=== PATIENT | female | born 1965 | race American Indian/Alaskan Native ===

== ENCOUNTER 2017-04-09 09:35 | Outpatient (CLI) | payer OTHER ==
--- NOTE | 2017-04-09 11:45 | XRay Report ---
BILATERAL KNEES, 2 VIEWS History: Bilateral knee pain. Findings: Moderate to severe osteoarthritic changes are identified throughout both knees. The patellofemoral spaces appear most affected. There is no evidence for fracture, bone lesion or large osteochondral defect. The soft tissues are within normal limits. Impression: Advanced osteoarthritis.
== END 2017-04-09 09:36 | disposition home or self-care (01) ==
LOC: XRAY 09:35
PROVIDERS: ATTEND Internal Medicine
DX: M17.0 Bilateral primary osteoarthritis of knee (principal)

== ENCOUNTER 2017-07-27 08:49 | Emergency (ER) | payer OTHER, MEDICAID ==
[2017-07-27 08:58] VITALS: BP 169/112
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
[2017-07-27 11:12] LABS: HCG Qualitative,Urine Negative (Negative)
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
== END 2017-07-27 12:07 | disposition home or self-care (01) ==
LOC: EDBD → ED 08:49
DX: R07.89 Other chest pain (principal); M25.511 Pain in right shoulder; M54.2 Cervicalgia; I10 Essential (primary) hypertension; V89.2XXA Person injured in unspecified motor-vehicle accident, traffic, initial encounter; Y93.89 Activity, other specified; Y99.8 Other external cause status; Y92.410 Unspecified street and highway as the place of occurrence of the external cause
CPT/HCPCS: 71046; 81025; 99283